=== PATIENT | female | born 1975 | race Two or more races ===

== ENCOUNTER → 2025-01-09 | Outpatient (CLI) | payer MEDICAID, SELFPAY ==
[2025-01-05 11:17] LABS: Basophils # (Auto) 0.0 Thou/mm3 (0.0-0.2); Basophils % (Auto) 0 % (0-2.5); Eosinophils # (Auto) 0.2 Thou/mm3 (0.0-0.5); Eosinophils % (Auto) 3 % (0-10); Hematocrit 36.4 % (36.0-46.0); Hemoglobin 13.0 g/dL (12.0-16.0); Immature Granulocytes Auto 0.05 Thou/mm3 (0.00-0.00); Lymphocytes # (Auto) 2.3 Thou/mm3 (1.0-4.8); Lymphocytes % (Auto) 27 % (10-50); Mean Corpuscular HGB Conc 35.7 g/dl (31.0-37.0); Mean Corpuscular Hemoglobin 31.2 pg (25.0-35.0); Mean Corpuscular Volume 87 fL (80-100); Monocytes # (Auto) 0.5 Thou/mm3 (0.0-0.8); Monocytes % (Auto) 6 % (0-12); Neutrophils # (Auto) 5.4 Thou/mm3 (1.8-7.7); Neutrophils % (Auto) 63 % (37-80); Nucleated Red Blood Cell # 0.00 Thou/mm3 (0.00-0.00); Nucleated Red Blood Cell % 0 /100 WBC (0); Platelet Count 222 Thou/mm3 (140-440); RDW Standard Deviation 40.4 fL (36.4-46.3); Red Blood Count 4.17 Miln/mm3 (4.00-5.20); White Blood Count 8.5 Thou/mm3 (3.6-11.0)
[2025-01-05 11:25] LABS: HCG,Qualitative Serum Negative
[2025-01-05 12:36] LABS: INR 1.0 (0.9-1.3); Partial Thromboplastin Time 33.6 Seconds (22.0-36.0); Prothrombin Time 11.4 Seconds (9.0-12.2)
--- NOTE | 2025-01-09 08:30 | XR_ITS ---
Examinations: Ultrasound-guided percutaneous breast biopsy, left breast 11:00 nodule Left breast sonography limited. Exam date and time: January 09, 2025 0921 hours INDICATIONS: Left breast nodule with lobular margins on breast sonogram this morning. Informed consent provided. Technique: A timeout was completed verifying correct patient, procedure, site, positioning, and special equipment if applicable Informed consent provided. The patient was placed in a supine position for the breast biopsy. Sonographic images of the breast were performed for localization of the suspicious nodule The patient's breast was prepped and draped in sterile fashion. Maximum sterile barrier technique, hand hygiene, ultrasound sterile technique 1% lidocaine was used to anesthetize the skin and breast adjacent to the suspicious nodule. Utilizing ultrasonographic guidance, 8 core biopsies were obtained of the suspicious nodule utilizing an 18-gauge BioPince needle. The specimens appears satisfactory. US guided breast biopsy marker placement. Estimated blood loss 3 cc. The patient tolerated the procedure well and there were no complications. Impression: Successful ultrasound-guided percutaneous breast biopsy, 11:00 nodule. Ultrasound guided breast biopsy marker placement.
--- NOTE | 2025-01-09 08:30 | XR_ITS ---
Examination: Breast ultrasound, unilateral, left complete Date and time of exam: January 09, 2025 0916 hours INDICATIONS: Left breast pain beginning one year ago Technique: Real-time shirley scale ultrasonographic imaging performed left breast including all 4 quadrants as well as nipple retroareolar and axillary region. Findings: 12:00 nodule circumscribed 11 x 9 mm 11:00 nodule lobular margins 9 x 9 mm IMPRESSION: BI-RADS Category 3: Probably benign findings Consider 6 month follow-up left breast sonography although biopsy of the liver o'clock nodule can be performed at this time, clinical correlation advised
== END | disposition home or self-care (01) ==
LOC: SIRX 07:49
PROVIDERS: Radiology Diagnostic Radiology; PCP Nurse Practitioner Family; Referring Provider Nurse Practitioner Family; Visit Provider Nurse Practitioner Family
DX: D24.2 Benign neoplasm of left breast (principal); N60.12 Diffuse cystic mastopathy of left breast; Z01.812 Encounter for preprocedural laboratory examination
CPT/HCPCS: 19083; 36415; 76641; 84703; 85025; 85610; 85730; A4648